=== PATIENT | male | born 1955 | race Caucasian/White ===

== ENCOUNTER 2018-02-16 06:44 | Day surgery (SDC) | payer OTHER ==
[~2018-02-16] VITALS: Ht 193 cm; Wt 116.3 kg
[~2018-02-16 06:44] MED LIST: AMLO5 PO; CIPR500 PO; LEVSOD125 PO; PENVK250 PO; PRAV20 PO
== END 2018-02-16 08:52 | disposition home or self-care (01) ==
LOC: ORSCSDS 06:44
PROVIDERS: Surgery
PROC: 0DBL8ZX Excision of Transverse Colon, Via Natural or Artificial Opening Endoscopic, Diagnostic (ICD-10-PCS; principal; 2018-02-16 08:00)
PROC: 0DBK8ZX Excision of Ascending Colon, Via Natural or Artificial Opening Endoscopic, Diagnostic (ICD-10-PCS; principal; 2018-02-16 08:00)
DX: Z12.11 Encounter for screening for malignant neoplasm of colon (principal); D12.2 Benign neoplasm of ascending colon; D12.3 Benign neoplasm of transverse colon; K57.30 Diverticulosis of large intestine without perforation or abscess without bleeding; Z86.010 Personal history of colon polyps; I10 Essential (primary) hypertension; E78.5 Hyperlipidemia, unspecified; E03.9 Hypothyroidism, unspecified; Z86.73 Personal history of transient ischemic attack (TIA), and cerebral infarction without residual deficits; F17.210 Nicotine dependence, cigarettes, uncomplicated; Z79.899 Other long term (current) drug therapy; Z79.82 Long term (current) use of aspirin
CPT/HCPCS: 88305; J0330; J1980; J2405; J7120

== ENCOUNTER 2018-06-26 19:49 | Emergency (ER) | payer OTHER ==
[~2018-06-26] VITALS: Ht 193 cm; Wt 120.2 kg
[2018-06-26 21:03] LABS: BASOPHILS ABSOLUTE AUTO 0.08 K/mm3 (0.00-0.23); BASOPHILS PERCENT AUTO 1 % (0-2); EOSINOPHILS ABSOLUTE AUTO 0.45 K/mm3 (0.00-0.68); EOSINOPHILS PERCENT AUTO 5 % (0-6); Hematocrit 47.5 % (37.0-53.0); Hemoglobin 16.3 g/dL (13.5-17.5); IMMATURE GRAN ABSOLUTE AUTO 0.01 K/mm3 (0.00-0.10); IMMATURE GRAN PERCENT AUTO 0 % (0-1); LYMPHOCYTES ABSOLUTE AUTO 2.86 K/mm3 (0.84-5.20); LYMPHOCYTES PERCENT AUTO 33 % (21-46); MONOCYTES ABSOLUTE AUTO 0.74 K/mm3 (0.16-1.47); MONOCYTES PERCENT AUTO 9 % (4-13); Mean Corpuscular HGB 30.5 pg (26.0-34.0); Mean Corpuscular HGB Conc 34.3 g/dL (31.5-36.5); Mean Corpuscular Volume 89 fL (80-100); Mean Platelet Volume 9.4 fL (9.1-12.4); NEUTROPHILS ABSOLUTE AUTO 4.43 K/mm3 (1.96-9.15); NEUTROPHILS PERCENT AUTO 52 % (41-73); Platelet Count 207 K/mm3 (150-400); RDW Coefficient Variation 12.6 % (11.7-14.2); RDW Standard Deviation 41.2 fL (35.1-46.3); Red Blood Cell Count 5.34 M/mm3 (4.30-5.90); White Blood Cell Count 8.57 K/mm3 (4.00-11.30)
[2018-06-26 21:35] LABS: Alanine Aminotransfer (ALT/SGP 57 U/L (12-78); Albumin, Blood 3.7 g/dL (3.4-5.0); Albumin/Globulin Ratio 1.1 (0.8-1.8); Alk Phos 86 U/L (50-136); Anion Gap 7 mmol/L (6-16); Aspartate Aminotrans (AST/SGOT 27 U/L (12-37); Bilirubin, Total 0.5 mg/dL (0.1-1.0); Blood Urea Nitrogen 14 mg/dL (8-24); Bun/Creatinine Ratio 15.8 (12.0-20.0); CO2, Blood 27 mmol/L (21-32); Calcium, Blood 8.7 mg/dL (8.5-10.1); Chloride, Blood 105 mmol/L (98-108); Creatinine, Blood 0.89 mg/dL (0.60-1.20); Globulin, Blood 3.5 g/dL (2.2-4.0); Glomerular Filtration Rate >60 (60-); Glucose, Blood 109 mg/dL (70-99); Potassium, Blood 3.7 mmol/L (3.5-5.5); Sodium, Blood 139 mmol/L (136-145); Total Protein, Blood 7.2 g/dL (6.4-8.2); Troponin I <0.015 ng/mL (0.000-0.040)
== END 2018-06-26 23:35 | disposition home or self-care (01) ==
LOC: ER 19:49
PROVIDERS: Emergency Medicine
DX: R55 Syncope and collapse (principal); R00.2 Palpitations; Z79.899 Other long term (current) drug therapy; I10 Essential (primary) hypertension; E03.9 Hypothyroidism, unspecified; E78.00 Pure hypercholesterolemia, unspecified; F17.200 Nicotine dependence, unspecified, uncomplicated
CPT/HCPCS: 71046; 80053; 84443; 84484; 85025; 93005; 93010; 99284-25; J7030

== ENCOUNTER 2019-11-03 11:45 | Day surgery (SDC) | payer MEDICARE, BC ==
[~2019-11-03] VITALS: Ht 193 cm; Wt 121.7 kg
[2019-11-03] MEDS ORDERED: CLOP75 (12:05)
[2019-11-03] MEDS ORDERED: ASPI81CH (12:06)
[2019-11-03] MEDS ORDERED: FAMO20 (12:06)
== END 2019-11-03 13:29 | disposition home or self-care (01) ==
LOC: ORSCSDS 11:45
PROVIDERS: Surgery
PROC: 0DB68ZX Excision of Stomach, Via Natural or Artificial Opening Endoscopic, Diagnostic (ICD-10-PCS; principal; 2019-11-03 13:00)
PROC: 0DB98ZX Excision of Duodenum, Via Natural or Artificial Opening Endoscopic, Diagnostic (ICD-10-PCS; principal; 2019-11-03 13:00)
DX: R10.13 Epigastric pain (principal); K29.80 Duodenitis without bleeding; K44.9 Diaphragmatic hernia without obstruction or gangrene; E78.5 Hyperlipidemia, unspecified; E03.9 Hypothyroidism, unspecified; I10 Essential (primary) hypertension; Z86.73 Personal history of transient ischemic attack (TIA), and cerebral infarction without residual deficits; F17.210 Nicotine dependence, cigarettes, uncomplicated; E66.9 Obesity, unspecified; Z68.34 Body mass index [BMI] 34.0-34.9, adult; Z79.82 Long term (current) use of aspirin; Z79.01 Long term (current) use of anticoagulants; Z79.899 Other long term (current) drug therapy
CPT/HCPCS: 88305; 88342; J2704; J7120

== ENCOUNTER 2019-11-28 07:46 | Day surgery (SDC) | payer MEDICARE, BC ==
[~2019-11-28] VITALS: Ht 188 cm; Wt 122.0 kg
[~2019-11-28 07:46] MED LIST changes: +ASPI81CH; +ATOR80 PO; +CLOP75; +FAMO20; +LEVSOD75; +METO25ER PO
--- NOTE | 2019-11-28 10:36 | NUR ---
1010 PATIENT ARRIVED FROM THE PROCEDURE ROOM VIA RECLINER. BROUGHT TO THE BEDSIDE. PATIENT PLACED ON THE MONITOR AND CALL LIGHT IN REACH.
--- NOTE | 2019-11-28 10:38 | NUR ---
1026 DR. WHITE AT THE BEDSIDE ADN SPOKE WITH AND PATIENT REGARDING NEED FOR BYPASS SURGERY. ALL QUESTIONS ANSWERED.
--- NOTE | 2019-11-28 10:41 | NUR ---
TR BAND IN PLACE, NO BLEEDING NOTED. ENCOURAGED PATIENT TO RESTRICT MOVEMENT/USE OF THE RIGHT HAND/WRIST.
--- NOTE | 2019-11-28 12:06 | NUR ---
1155 ALL AIR REMOVED AT 1130 AND NO BLEEDING NOTED. VVS. REVIEWED DISCHARGE INSTRUCTIONS WITH PAITENT AND . ALL QUESTIONS ANSWERED.
--- NOTE | 2019-11-28 12:07 | NUR ---
1205 PATIENT UP AND DRESSED. TR BAND REMOVED ADN SITE CLEANED. CLOTH DOT PLACED TO THE RIGHT RADIAL AND NO BLEEDING OR HEMATOMA NOTED. PATIENT UP TO THE RESTROOM.
--- NOTE | 2019-11-28 12:23 | NUR ---
PIV REMOVED. ALL BELONGINGS GATHERED. QUESTIONS ANSWERED. TEACHING PACKET AND MED LIST IN HAND. DISCHARGED VIA WHEEL CHAIR TO THE CAR WITH DRIVING.
== END 2019-11-28 12:00 | disposition home or self-care (01) ==
LOC: MHTC 07:46
DX: I25.10 Atherosclerotic heart disease of native coronary artery without angina pectoris (principal); I10 Essential (primary) hypertension; Z88.8 Allergy status to other drugs, medicaments and biological substances; E78.00 Pure hypercholesterolemia, unspecified; J44.9 Chronic obstructive pulmonary disease, unspecified; E78.5 Hyperlipidemia, unspecified; Z82.49 Family history of ischemic heart disease and other diseases of the circulatory system; Z79.02 Long term (current) use of antithrombotics/antiplatelets; E03.9 Hypothyroidism, unspecified; Z79.82 Long term (current) use of aspirin; Z79.899 Other long term (current) drug therapy; F17.210 Nicotine dependence, cigarettes, uncomplicated; E66.3 Overweight; Z68.34 Body mass index [BMI] 34.0-34.9, adult; I65.23 Occlusion and stenosis of bilateral carotid arteries
CPT/HCPCS: 85347; 92978; 93458; 99152; 99153; C1753; C1769; C1887; C1894; J1644; J2250; J3010; J7030; Q9967

== ENCOUNTER 2021-12-19 19:12 | Inpatient (IN) | payer MEDICARE, BC ==
[~2021-12-19] VITALS: Ht 190.5 cm; Wt 119.9 kg
[~2021-12-19 19:12] MED LIST changes: -ASPI81CH; +ASPI81CH PO; -FAMO20; +FAMO20 PO
[2021-12-19 19:51] LABS: BASOPHILS ABSOLUTE AUTO 0.04 K/mm3 (0.00-0.23); BASOPHILS PERCENT AUTO 0 % (0-2); EOSINOPHILS ABSOLUTE AUTO 0.06 K/mm3 (0.00-0.68); EOSINOPHILS PERCENT AUTO 0 % (0-6); Hematocrit 43.2 % (37.0-53.0); IMMATURE GRAN ABSOLUTE AUTO 0.07 K/mm3 (0.00-0.10); IMMATURE GRAN PERCENT AUTO 1 % (0-1); LYMPHOCYTES ABSOLUTE AUTO 0.76 K/mm3 (0.84-5.20); LYMPHOCYTES PERCENT AUTO 5 % (21-46); MONOCYTES ABSOLUTE AUTO 1.66 K/mm3 (0.16-1.47); MONOCYTES PERCENT AUTO 11 % (4-13); Mean Corpuscular HGB 30.1 pg (26.0-34.0); Mean Corpuscular HGB Conc 34.7 g/dL (31.5-36.5); Mean Corpuscular Volume 87 fL (80-100); Mean Platelet Volume 9.8 fL (9.1-12.4); NEUTROPHILS ABSOLUTE AUTO 12.45 K/mm3 (1.96-9.15); NEUTROPHILS PERCENT AUTO 83 % (41-73); Platelet Count 171 K/mm3 (150-400); RDW Coefficient Variation 13.3 % (11.7-14.2); RDW Standard Deviation 42.1 fL (35.1-46.3); Red Blood Cell Count 4.99 M/mm3 (4.30-5.90); White Blood Cell Count 15.04 K/mm3 (4.00-11.30)
[2021-12-19 20:02] LABS: Albumin, Blood 3.6 g/dL (3.4-5.0); Bilirubin, Total 7.2 mg/dL (0.1-1.0); Bun/Creatinine Ratio 18.2 (12.0-20.0); Calcium, Blood 9.3 mg/dL (8.5-10.1); Creatinine, Blood 1.1 mg/dL (0.60-1.20); Globulin, Blood 3.5 g/dL (2.2-4.0); Potassium, Blood 3.5 mmol/L (3.5-5.5); Total Protein, Blood 7.1 g/dL (6.4-8.2)
[2021-12-19 22:14] LABS: Influenza A, PCR NEGATIVE (NEGATIVE); Influenza B, PCR NEGATIVE (NEGATIVE); Resp Syncytial Virus, PCR NEGATIVE (NEGATIVE); SARS-Cov-2 (COVID-19) PCR, MMC NEGATIVE (NEGATIVE)
[2021-12-20 07:12] LABS: Albumin, Blood 3.3 g/dL (3.4-5.0); Bilirubin, Total 7.8 mg/dL (0.1-1.0); Bun/Creatinine Ratio 17.9 (12.0-20.0); Calcium, Blood 8.5 mg/dL (8.5-10.1); Creatinine, Blood 0.9 mg/dL (0.60-1.20); Globulin, Blood 3.3 g/dL (2.2-4.0); Potassium, Blood 3.1 mmol/L (3.5-5.5); Total Protein, Blood 6.6 g/dL (6.4-8.2)
[2021-12-20 07:50] LABS: BASOPHILS ABSOLUTE AUTO 0.04 K/mm3 (0.00-0.23); BASOPHILS PERCENT AUTO 0 % (0-2); EOSINOPHILS ABSOLUTE AUTO 0.14 K/mm3 (0.00-0.68); EOSINOPHILS PERCENT AUTO 1 % (0-6); Hemoglobin 14.4 g/dL (13.5-17.5); IMMATURE GRAN ABSOLUTE AUTO 0.03 K/mm3 (0.00-0.10); IMMATURE GRAN PERCENT AUTO 0 % (0-1); LYMPHOCYTES ABSOLUTE AUTO 1.35 K/mm3 (0.84-5.20); LYMPHOCYTES PERCENT AUTO 11 % (21-46); MONOCYTES ABSOLUTE AUTO 1.43 K/mm3 (0.16-1.47); MONOCYTES PERCENT AUTO 12 % (4-13); Mean Corpuscular HGB 30.4 pg (26.0-34.0); Mean Corpuscular HGB Conc 35.1 g/dL (31.5-36.5); Mean Corpuscular Volume 87 fL (80-100); Mean Platelet Volume 9.3 fL (9.1-12.4); NEUTROPHILS ABSOLUTE AUTO 9.36 K/mm3 (1.96-9.15); NEUTROPHILS PERCENT AUTO 76 % (41-73); Platelet Count 145 K/mm3 (150-400); RDW Coefficient Variation 13.4 % (11.7-14.2); RDW Standard Deviation 42.5 fL (35.1-46.3); Red Blood Cell Count 4.74 M/mm3 (4.30-5.90); White Blood Cell Count 12.35 K/mm3 (4.00-11.30)
[2021-12-20] MEDS ORDERED: LIPITOR80 MG PO (11:32)
[2021-12-20] MEDS ORDERED: ATENOLOL25 MG PO (11:32)
[2021-12-20] MEDS ORDERED: LEVOTHYROXINE PO (16:19)
[2021-12-20 17:22] LABS: Bilirubin, Direct 5.8 mg/dL (0.0-0.3); Bilirubin, Indirect 1.7 mg/dL (0.1-0.7); Bilirubin, Total 7.5 mg/dL (0.1-1.0)
--- NOTE | 2021-12-20 18:22 | NUR ---
PT ARRIVED TO THE MEDICAL FLOOR FROM THE ER VIA WHEELCHAIR A/OX4, PLEASANT AND COOPERATIVE. THE PT TRANSFERED TO THE BED UNASSISTED. THE PT IS JAUNDICE IN COLOR APPEARS TO BE BREATHING EASILY ON RA AT THIS TIME. PT ORIENTED TO THE ROOM LAYOUT AND CALL SYSTEM. CALL LIGHT IN REACH, DR. WILL WAS IN TO SEE THE PT. PT SCHEDULED FOR A MRCP IN THE AM. PT TO BE NPO AFTER MN. CALL LIGHT IN REACH. WILL CONTINUE TO MONITOR FOR CHANGES
[2021-12-20 21:18] LABS: Influenza A, PCR NEGATIVE (NEGATIVE); Influenza B, PCR NEGATIVE (NEGATIVE); Resp Syncytial Virus, PCR NEGATIVE (NEGATIVE); SARS-Cov-2 (COVID-19) PCR, MMC NEGATIVE (NEGATIVE)
[2021-12-20 22:22] LABS: Source, Urine Clean Catch
[2021-12-20 22:25] LABS: Blood, Urine 2+ (Neg); Glucose Qualitative, Urine Neg (Neg); Ketones, Urine 1+ (Neg); Leukocyte Esterase, Urine 1+ (Neg); Nitrite, Urine Neg (Neg); Protein, Urine 2+ (Neg); Urobilinogen, Urine 2+ (Normal)
[2021-12-20 22:27] LABS: Appearance, Urine Clear (Clear); Bilirubin, Urine 2+ (Neg); Color, Urine Amber (P-Yellow)
[2021-12-20 22:36] LABS: Bacteria Rare /hpf; Red Blood Cells, Urine 0-2 /hpf (0-2); Squamous Epithelial Cells Few /hpf (Few); White Blood Cells, Urine 0-2 /hpf (0-5)
[2021-12-21 05:32] LABS: Albumin, Blood 2.9 g/dL (3.4-5.0); Albumin/Globulin Ratio 0.8 (0.8-1.8); Bilirubin, Total 4.6 mg/dL (0.1-1.0); Bun/Creatinine Ratio 17.5 (12.0-20.0); Calcium, Blood 8.3 mg/dL (8.5-10.1); Creatinine, Blood 0.8 mg/dL (0.60-1.20); Globulin, Blood 3.6 g/dL (2.2-4.0); Potassium, Blood 3.8 mmol/L (3.5-5.5); Total Protein, Blood 6.5 g/dL (6.4-8.2)
[2021-12-21 05:57] LABS: BASOPHILS ABSOLUTE AUTO 0.03 K/mm3 (0.00-0.23); BASOPHILS PERCENT AUTO 0 % (0-2); EOSINOPHILS ABSOLUTE AUTO 0.29 K/mm3 (0.00-0.68); EOSINOPHILS PERCENT AUTO 3 % (0-6); Hematocrit 44.2 % (37.0-53.0); Hemoglobin 14.9 g/dL (13.5-17.5); IMMATURE GRAN ABSOLUTE AUTO 0.03 K/mm3 (0.00-0.10); IMMATURE GRAN PERCENT AUTO 0 % (0-1); LYMPHOCYTES ABSOLUTE AUTO 0.83 K/mm3 (0.84-5.20); LYMPHOCYTES PERCENT AUTO 9 % (21-46); MONOCYTES ABSOLUTE AUTO 0.98 K/mm3 (0.16-1.47); MONOCYTES PERCENT AUTO 11 % (4-13); Mean Corpuscular HGB 30.2 pg (26.0-34.0); Mean Corpuscular HGB Conc 33.7 g/dL (31.5-36.5); Mean Corpuscular Volume 90 fL (80-100); NEUTROPHILS ABSOLUTE AUTO 6.99 K/mm3 (1.96-9.15); NEUTROPHILS PERCENT AUTO 76 % (41-73); Platelet Count 134 K/mm3 (150-400); RDW Coefficient Variation 13.5 % (11.7-14.2); RDW Standard Deviation 43.9 fL (35.1-46.3); Red Blood Cell Count 4.94 M/mm3 (4.30-5.90); White Blood Cell Count 9.15 K/mm3 (4.00-11.30)
--- NOTE | 2021-12-21 07:25 | NUR ---
SHIFT SUMMARY: PATIENT IS A&OX4. BP'S ARE ELEVATED, PATIENT IS ASYMPTTOMATIC. NO REPORTS OF PAIN. LOW GRADE TEMP. WAS OBSERVED AND RESOLVED ON IT'S OWN. PATIENT HAS BEEN NPO SINCE MIDNIGHT. ORAL CARE SUPPLIES ARE AT BEDSIDE. SCD'S ARE IN PLACE.
[2021-12-21 08:09] LABS: HBSAG SCREEN Negative (Negative); HCV AB <0.1 (0.0-0.9); HEP A AB, IGM Negative (Negative); HEP B CORE AB, IGM Negative (Negative)
--- NOTE | 2021-12-21 14:22 | NUR ---
SHIFT SUMMARY PT AWAKE AT START OF SHIFT, WAITING TO GO DOWN TO IMAGING FOR HIDA-SCAN. PT NPO SINCE MN, WANTING TO EAT AND DRINK. INDEPENDENT IN AND TO BTHRM. IMAGING NOTIFIED FOR TIME AND SOON TAKEN DOWN. PT RETURNED FOR THE LAST TIME JUST BEFORE LUNCH. AM MEDS GIVEN PER EMAR, WHEN NO LONGER NPO. PT'S AT BS AFTER START OF SHIFT AND HAS REMAINED. NO C/O, DENIES FURTHER NEEDS AT THIS TIME. CALL LT IN REACH.
[2021-12-22 05:27] LABS: BASOPHILS ABSOLUTE AUTO 0.04 K/mm3 (0.00-0.23); BASOPHILS PERCENT AUTO 1 % (0-2); EOSINOPHILS ABSOLUTE AUTO 0.23 K/mm3 (0.00-0.68); EOSINOPHILS PERCENT AUTO 4 % (0-6); Hematocrit 42.3 % (37.0-53.0); Hemoglobin 14.4 g/dL (13.5-17.5); IMMATURE GRAN ABSOLUTE AUTO 0.03 K/mm3 (0.00-0.10); IMMATURE GRAN PERCENT AUTO 1 % (0-1); LYMPHOCYTES ABSOLUTE AUTO 1.46 K/mm3 (0.84-5.20); LYMPHOCYTES PERCENT AUTO 23 % (21-46); MONOCYTES ABSOLUTE AUTO 1.04 K/mm3 (0.16-1.47); MONOCYTES PERCENT AUTO 16 % (4-13); Mean Corpuscular HGB 29.7 pg (26.0-34.0); Mean Corpuscular Volume 87 fL (80-100); Mean Platelet Volume 10.1 fL (9.1-12.4); NEUTROPHILS ABSOLUTE AUTO 3.69 K/mm3 (1.96-9.15); NEUTROPHILS PERCENT AUTO 57 % (41-73); Platelet Count 147 K/mm3 (150-400); RDW Coefficient Variation 13.4 % (11.7-14.2); Red Blood Cell Count 4.85 M/mm3 (4.30-5.90); White Blood Cell Count 6.49 K/mm3 (4.00-11.30)
[2021-12-22 05:42] LABS: Albumin, Blood 2.8 g/dL (3.4-5.0); Albumin/Globulin Ratio 0.7 (0.8-1.8); Bilirubin, Total 3.1 mg/dL (0.1-1.0); Bun/Creatinine Ratio 14.5 (12.0-20.0); Calcium, Blood 8.2 mg/dL (8.5-10.1); Creatinine, Blood 0.9 mg/dL (0.60-1.20); Globulin, Blood 3.9 g/dL (2.2-4.0); Potassium, Blood 3.6 mmol/L (3.5-5.5); Total Protein, Blood 6.7 g/dL (6.4-8.2)
--- NOTE | 2021-12-22 07:10 | NUR ---
SHIFT SUMMARY: LOW GRADE TEMP. OBSERVED. PATIENT DECLINED TYLENOL. NO REPORTS OF PAIN OR NAUSEA. PATIENT HAS BEEN NPO SINCE SD FOR CONSULT WITH DR FENTON TODAY. NO ACUTE CHANGES IN CONDITION.
--- NOTE | 2021-12-22 13:09 | NUR ---
PT AWAKE DURING SHIFT REPORT, SITTING UP IN BED WATCHING TV. PT REMAINED NPO AFTER MN PER ORDERS UNTIL DR FENTON HERE TO DISCUSS PLAN OF CARE. PT'S TO AT BS EARLY THIS AM. DR FENTON LATER HERE TO SEE PT AND DISCUSSED TEST RESULTS AND DX. PT AGREEABLE TO GB SX AND SIGNED CONSENT. QUESTIONS ANSWERED. PT THEN UP TO SHOWER. IVF'S STARTED WHEN BACK TO BED. DR SAAVEDRA THEN HERE TO SEE PT, QUESTIONS ANSWERED. PT PLEASANT AND CO-OP, WAITING TO GO TO OR FOR SX. 1250 PT TAKEN DOWN TO OR VIA BED. REMAINING IN AT THIS TIME.
--- NOTE | 2021-12-22 13:23 | NUR ---
12/22/21 1323 Dickson Horton NEW 20G IV STARTED TO RIGHT WRIST. PREVIOUS IV WAS VERY RED AND SLOW.
--- NOTE | 2021-12-22 18:53 | NUR ---
1605 PT RETURNED TO RM FROM OR, HAVING GB SX, A&O AND TALKING. PT TOLERATED WELL, HAS REMAINED STABLE; SEE CHART. C/O RUQ PAIN; MEDICATED PER EMAR. TOLERATING DIET WELL; NO N/V. PT'S AND DAUGHTERS IN RM WHEN RETURNING TO VISIT. REMAINS AT BS. VSS; SEE CHART. CALL LT IN REACH, ABLE TO MAKE NEEDS KNOWN. IV ABX INFUSING. WILL REPORT TO ONCOMING RN.
[2021-12-23 06:22] LABS: Albumin, Blood 2.6 g/dL (3.4-5.0); Albumin/Globulin Ratio 0.7 (0.8-1.8); Bilirubin, Total 3.1 mg/dL (0.1-1.0); Bun/Creatinine Ratio 15.7 (12.0-20.0); Creatinine, Blood 0.83 mg/dL (0.60-1.20); Globulin, Blood 3.6 g/dL (2.2-4.0); Potassium, Blood 3.5 mmol/L (3.5-5.5); Total Protein, Blood 6.2 g/dL (6.4-8.2)
--- NOTE | 2021-12-23 06:37 | NUR ---
SHIFT SUMMARY: PATIENT IS TOLERATING DIET WELL. LOW GRADE TEMP. OBSERVED. INCENTIVE SPIROMETER INSTRUCTION WAS GIVEN. PATIENT WAS ABLE TO ACHIEVE 2000MM ON FIRST DEMONSTRATION. AMB. TO THE BATHROOM WITH ASSIST X1 WITH STEADY GAIT. IV FENTANYL WAS GIVEN X2 FOR BREAKTHROUGH PAIN. BOWEL SOUNDS REMAIN HYPOACTIVE. PATIENT REPORTS NO FLATUS.
--- NOTE | 2021-12-23 17:42 | NUR ---
SHIFT SUMMARY PATIENT MEDICATED FOR PAIN X3. PATIENT DENIES NAUSEA AND SHORTNESS OF BREATH. PATIENT IS A SBA FOR TRANSFERS. PATIENT ON 4L VIA N/C, SATURATING AT 92%. PATIENT USES CPAP AT NIGHT, BROUGHT PERSONAL CPAP. DR. FENTON REMOVED DRAIN FROM SURGICAL SITE. ALL DRESSING ARE C/D/I. PATIENT TOELRATING FOOD WELL. PATIENT EATING AND DRINKING WELL. PATIENT IS PLEASANT AND COOPERATIVE WITH CARE.
--- NOTE | 2021-12-24 04:22 | NUR ---
SHIFT SUMMARY NO ACUTE EVENTS T/O SHIFT. PT AOX4. PT REMAINS ON 4L O2 WHILE AWAKE AND CPAP WHILE SLEEPING, SATS AT 93% ON BOTH. ABDOMINAL SURGICAL SITE DRESSING ARE C/D/I. PT RECIEVING IV ANTIBIOTICS, CULTURE RESULT SHOWED NO GROWTH IN 4 DAYS. BOWEL SOUNDS ARE HYPOACTIVE AND FAINT. IV SITE ON RIGHT FOREARM LEAKED DURING 10 ML FLUSH. PT REFUSED EVENING ANALGESIC, PAIN WAS WITHIN TOLERABLE LIMIT. PT WAS COOPERATIVE WITH CARE.
[2021-12-24 05:30] LABS: BASOPHILS ABSOLUTE AUTO 0.05 K/mm3 (0.00-0.23); BASOPHILS PERCENT AUTO 1 % (0-2); EOSINOPHILS ABSOLUTE AUTO 0.35 K/mm3 (0.00-0.68); EOSINOPHILS PERCENT AUTO 4 % (0-6); Hematocrit 41.2 % (37.0-53.0); Hemoglobin 14.1 g/dL (13.5-17.5); IMMATURE GRAN ABSOLUTE AUTO 0.04 K/mm3 (0.00-0.10); IMMATURE GRAN PERCENT AUTO 0 % (0-1); LYMPHOCYTES ABSOLUTE AUTO 1.75 K/mm3 (0.84-5.20); LYMPHOCYTES PERCENT AUTO 18 % (21-46); MONOCYTES ABSOLUTE AUTO 1.32 K/mm3 (0.16-1.47); MONOCYTES PERCENT AUTO 13 % (4-13); Mean Corpuscular HGB 30.2 pg (26.0-34.0); Mean Corpuscular HGB Conc 34.2 g/dL (31.5-36.5); Mean Corpuscular Volume 88 fL (80-100); Mean Platelet Volume 10.1 fL (9.1-12.4); NEUTROPHILS ABSOLUTE AUTO 6.46 K/mm3 (1.96-9.15); NEUTROPHILS PERCENT AUTO 65 % (41-73); Platelet Count 151 K/mm3 (150-400); RDW Coefficient Variation 13.6 % (11.7-14.2); RDW Standard Deviation 44.2 fL (35.1-46.3); Red Blood Cell Count 4.67 M/mm3 (4.30-5.90); White Blood Cell Count 9.97 K/mm3 (4.00-11.30)
[2021-12-24 06:03] LABS: Albumin, Blood 2.7 g/dL (3.4-5.0); Albumin/Globulin Ratio 0.6 (0.8-1.8); Bilirubin, Total 2.5 mg/dL (0.1-1.0); Bun/Creatinine Ratio 12.7 (12.0-20.0); Calcium, Blood 8.4 mg/dL (8.5-10.1); Creatinine, Blood 0.87 mg/dL (0.60-1.20); Globulin, Blood 4.2 g/dL (2.2-4.0); Potassium, Blood 3.4 mmol/L (3.5-5.5); Total Protein, Blood 6.9 g/dL (6.4-8.2)
[2021-12-24] MEDS ORDERED: DOCUZEN 8.6-501 EACH PO (10:28)
[2021-12-24] MEDS ORDERED: AMOCLA875 PO (10:28)
--- NOTE | 2021-12-24 11:07 | NUR ---
DISCHARGE PATIENT TRANSPORTED VIA WHEELCHAIR TO PRIVATE VEHICLE. DISCHARGE INSTRUCTIONS EXPLAINED TO PATIENT. PATIENT STATED UNDERSTANDING. PACKET SENT WITH PATIENT. BELONGINGS SENT WITH PATIENT. IV REMOVED WITHOUT DIFFICULTY. PHARMACIST EXPLAINED NEW MEDICATIONS TO PATIENT. MEDICATIONS FAXED TO PREFERRED PHARMACY. PATIENT TO CALL TO SCHEDULE FOLLOW UP WITH PCP AND DR. FENTON.
[2021-12-25 14:11] LABS: ANA DIRECT Positive (Negative); ANTI-DNA (DS) AB QN <1 IU/mL (0-9); SJOGREN'S ANTI-SS-A <0.2 AI (0.0-0.9); SJOGREN'S ANTI-SS-B <0.2 AI (0.0-0.9); SMITH ANTIBODIES <0.2 AI (0.0-0.9)
== END 2021-12-24 10:57 | disposition home or self-care (01) | DRG 853 ==
LOC: ER 19:12 → ERHOLD 12-20 03:40 → MEDS 12-20 03:40
PROVIDERS: Family Medicine; Internal Medicine; Student in an Organized Health Care Education/Training Program; Surgery; ADMIT Internal Medicine
PROC: 3E03329 Introduction of Other Anti-infective into Peripheral Vein, Percutaneous Approach (ICD-10-PCS; principal; 2021-12-20)
PROC: 0FT44ZZ Resection of Gallbladder, Percutaneous Endoscopic Approach (ICD-10-PCS; 2021-12-22)
PROC: BF131ZZ Fluoroscopy of Gallbladder and Bile Ducts using Low Osmolar Contrast (ICD-10-PCS; 2021-12-22)
DX: A41.9 Sepsis, unspecified organism (principal); J96.21 Acute and chronic respiratory failure with hypoxia; J84.9 Interstitial pulmonary disease, unspecified; E87.1 Hypo-osmolality and hyponatremia; K80.43 Calculus of bile duct with acute cholecystitis with obstruction; E03.9 Hypothyroidism, unspecified; I10 Essential (primary) hypertension; E78.00 Pure hypercholesterolemia, unspecified; E87.6 Hypokalemia; E83.51 Hypocalcemia; F17.210 Nicotine dependence, cigarettes, uncomplicated; J44.9 Chronic obstructive pulmonary disease, unspecified; I73.9 Peripheral vascular disease, unspecified; G47.33 Obstructive sleep apnea (adult) (pediatric); R74.01 Elevation of levels of liver transaminase levels; Z20.822 Contact with and (suspected) exposure to COVID-19; E80.6 Other disorders of bilirubin metabolism; R74.8 Abnormal levels of other serum enzymes; I25.10 Atherosclerotic heart disease of native coronary artery without angina pectoris; E88.09 Other disorders of plasma-protein metabolism, not elsewhere classified; Z79.899 Other long term (current) drug therapy; Z95.1 Presence of aortocoronary bypass graft; Z79.82 Long term (current) use of aspirin; Z86.79 Personal history of other diseases of the circulatory system; Z99.81 Dependence on supplemental oxygen; Z88.8 Allergy status to other drugs, medicaments and biological substances; Z98.890 Other specified postprocedural states; Z79.02 Long term (current) use of antithrombotics/antiplatelets
CPT/HCPCS: 0241U; 36415; 71045; 71046; 71260; 74181; 76705; 78226; 80053; 80074; 81001; 82247; 82248; 83605; 83880; 84443; 84484; 85025; 85379; 86225; 86235; 87040; 88304; 93005; 93010; 93306; 94762; 96374; 99285-25; A9270; A9537; C1729; G0480; J0295; J0696; J1650; J1885; J2704; J2710; J2765; J3010; J7120; Q9967

== ENCOUNTER → 2022-01-21 | Outpatient (CLI) | payer MEDICARE, BC ==
[~2022-01-21] MED LIST changes: +AMOCLA875 PO; +ATENOLOL25 MG PO; +DOCUZEN 8.6-501 EACH PO; +LEVOTHYROXINE PO; +LIPITOR80 MG PO
== END | disposition home or self-care (01) ==
LOC: LAB 09:46 → LAB SHORT 09:46
DX: N39.0 Urinary tract infection, site not specified (principal)
CPT/HCPCS: 87077; 87086; 87186

== ENCOUNTER → 2023-06-03 | Outpatient (CLI) | payer MEDICARE, BC | LOC: LAB 14:00 → LAB SHORT 14:00 | DX: L82.1 Other seborrheic keratosis (principal) | CPT/HCPCS: 88305 ==

== ENCOUNTER → 2023-09-15 | Outpatient (CLI) | payer MEDICARE, BC ==
[2023-09-15 10:41] LABS: BASOPHILS ABSOLUTE AUTO 0.08 K/mm3 (0.00-0.23); BASOPHILS PERCENT AUTO 1 % (0-2); EOSINOPHILS ABSOLUTE AUTO 0.34 K/mm3 (0.00-0.68); EOSINOPHILS PERCENT AUTO 4 % (0-6); Hematocrit 45.2 % (37.0-53.0); Hemoglobin 15.6 g/dL (13.5-17.5); IMMATURE GRAN ABSOLUTE AUTO 0.02 K/mm3 (0.00-0.10); IMMATURE GRAN PERCENT AUTO 0 % (0-1); LYMPHOCYTES ABSOLUTE AUTO 1.99 K/mm3 (0.84-5.20); LYMPHOCYTES PERCENT AUTO 24 % (21-46); MONOCYTES ABSOLUTE AUTO 0.77 K/mm3 (0.16-1.47); MONOCYTES PERCENT AUTO 9 % (4-13); Mean Corpuscular HGB Conc 34.5 g/dL (31.5-36.5); Mean Corpuscular Volume 90 fL (80-100); Mean Platelet Volume 9.5 fL (9.1-12.4); NEUTROPHILS ABSOLUTE AUTO 5.12 K/mm3 (1.96-9.15); NEUTROPHILS PERCENT AUTO 62 % (41-73); Platelet Count 171 K/mm3 (150-400); RDW Coefficient Variation 13.3 % (11.7-14.2); RDW Standard Deviation 43.8 fL (35.1-46.3); Red Blood Cell Count 5.03 M/mm3 (4.30-5.90); White Blood Cell Count 8.32 K/mm3 (4.00-11.30)
[2023-09-15 10:56] LABS: Alanine Aminotransfer (ALT/SGP 34 U/L (12-78); Albumin, Blood 3.7 g/dL (3.4-5.0); Albumin/Globulin Ratio 1.2 (0.8-1.8); Alk Phos 91 U/L (50-136); Anion Gap 9 mmol/L (3-11); Aspartate Aminotrans (AST/SGOT 18 U/L (12-37); Bilirubin, Total 0.7 mg/dL (0.1-1.0); Blood Urea Nitrogen 15 mg/dL (8-24); Bun/Creatinine Ratio 17.5 (12.0-20.0); CHOL/HDL RATIO 2.6; CO2, Blood 27 mmol/L (21-32); Calcium, Blood 9.2 mg/dL (8.5-10.1); Chloride, Blood 109 mmol/L (98-108); Cholesterol 113 mg/dL (50-200); Creatinine, Blood 0.86 mg/dL (0.60-1.20); Globulin, Blood 3.1 g/dL (2.2-4.0); Glomerular Filtration Rate 94 (60-); Glucose, Blood 102 mg/dL (70-99); HDL Cholesterol 43 mg/dL (>39); LDL/HDL RATIO 1.3; Low Density Lipoprotein Chol 55 mg/dL (0-110); Potassium, Blood 3.9 mmol/L (3.5-5.5); Sodium, Blood 141 mmol/L (136-145); Total Protein, Blood 6.8 g/dL (6.4-8.2); Triglycerides 75 mg/dL (30-160); Very Low Density Lipoprot Chol 15 mg/dL (6-32)
== END | disposition home or self-care (01) ==
LOC: LAB 09:40 → LAB SHORT 09:40
PROVIDERS: Registered Nurse
DX: I25.810 Atherosclerosis of coronary artery bypass graft(s) without angina pectoris (principal); E03.9 Hypothyroidism, unspecified; E78.5 Hyperlipidemia, unspecified; I10 Essential (primary) hypertension; I47.10 Supraventricular tachycardia, unspecified; I47.29 Other ventricular tachycardia; I48.0 Paroxysmal atrial fibrillation
CPT/HCPCS: 36415; 80053; 80061; 83735; 84443; 85025